=== PATIENT | female | born 1995 | race Caucasian/White ===

== ENCOUNTER 2021-12-04 10:55 | Inpatient (IN) | payer OTHER ==
[2021-12-04 11:27] VITALS: BMI 28.3
[2021-12-04] MEDS ORDERED: hydrALAZINE 20 MG/ML VIAL SLOW IVP PRN ×2 (11:43→15:44)
[2021-12-04 11:54] LABS: Fetal Membranes Rupture No Membranes Rupture (No Rupture)
[2021-12-04] MEDS ORDERED: Diphenoxylate HCl/Atropine Tablet PO PRN (15:44)
[2021-12-04] MEDS ORDERED: Acetaminophen 500 MG TAB PO PRN (15:44)
[2021-12-04] MEDS ORDERED: Ibuprofen 800 MG TAB PO PRN (15:44)
[2021-12-04] MEDS ORDERED: Misoprostol 200 MCG TAB PR PRN (15:44)
[2021-12-04] MEDS ORDERED: Methylergonovine 0.2 MG/ML VIAL IM PRN (15:44)
[2021-12-04] MEDS ORDERED: HYDROcodone/Acetaminophen 5/325 mg Tablet PO PRN ×2 (15:44)
[2021-12-04] MEDS ORDERED: Carboprost 250 MCG/ML AMP IM PRN (15:44)
[2021-12-04] MEDS ORDERED: Ondansetron PF 4 MG/2 ML Vial IVP PRN (15:44)
[2021-12-04] MEDS ORDERED: Promethazine HCl 25 MG/ML VIAL IM PRN (15:44)
[2021-12-04] MEDS ORDERED: Lidocaine 1% (PF) 30 ML VIAL SC PRN (15:44)
[2021-12-04] MEDS ORDERED: NS w/ Oxytocin 30 units 500 ML IV SCH ×2 (15:45)
[2021-12-04] MEDS ORDERED: Misoprostol 100 MCG TAB VAG SCH (15:45)
[2021-12-04 20:12] LABS: Hemoglobin 12.5 g/dL (12.0-15.5); Mean Corpuscular HGB CONC 32.9 g/dL (32.0-36.0); Mean Corpuscular Hemoglobin 27.5 pg (27.0-33.0); Mean Corpuscular Volume 83.5 fl (81.6-98.3); Mean Platelet Volume 11.7 fl (7.4-10.4); Platelet Count 166 10x3/uL (150-450); RBC Distribution Width 18.5 % (11.5-14.5); Red Blood Cell (RBC) Count 4.55 10x6/uL (3.90-5.03); White Blood Cell (WBC) Count 8.7 10x3/uL (3.5-10.5)
[2021-12-04 20:48] LABS: Syphilis Antibody Nonreactive (Nonreactive); Syphilis Antibody Index 0.01 S/CO (<1.00 Non-Reactive)
[2021-12-04] MEDS: valACYclovir 500 MG TAB PO SCH (20:51)
[2021-12-04 21:57] LABS: HBSAg Index 0.18 S/CO (0-0.99); Hep B Surf Ag Non-Reactive S/CO (NonReactive)
[2021-12-05 02:28] LABS: SARS-CoV-2 NAA Rapid Test Not Detected (NotDetected)
[2021-12-05] MEDS: Misoprostol 100 MCG TAB PO SCH ×5 (03:57→14:42)
[2021-12-05] MEDS: Penicillin G Potassium 5 MILL.UNITS in Sodium Chloride 0.9% 100 ML IVPB SCH ×2 (09:00→09:28)
[2021-12-05] MEDS: Lactated Ringer's 1,000 ML IV SCH ×3 (09:00→18:33)
[2021-12-05] MEDS: Penicillin G 2.5 MILL.units 2.5 MILL.UNITS in Premix Bag 1 BAG IVPB SCH ×5 (09:01→17:53)
[2021-12-05] MEDS: valACYclovir 500 MG TAB PO SCH (09:13)
[2021-12-05] MEDS ORDERED: Penicillin G Potassium 5 MILL.UNITS VIAL ONE (09:23)
[2021-12-05] MEDS ORDERED: Tranexamic Acid 1,000 MG/10 ML VIAL ONE (15:14)
[2021-12-05] MEDS ORDERED: CEFAZOLIN 2 GM VIAL ONE (15:14)
[2021-12-05] MEDS ORDERED: Ketamine 50 MG/ML (10ML VIAL) ONE (15:26)
[2021-12-05] MEDS ORDERED: Midazolam HCl 2 mg/2 ml Vial ONE (15:27)
[2021-12-05] MEDS ORDERED: Oxytocin 10 UNITS/ML VIAL ONE (15:45)
[2021-12-05] MEDS ORDERED: Boostrix 0.5 ML (Tdap) VIAL (>/=7 yrs of age) IM ONE (17:58)
[2021-12-05] MEDS ORDERED: Milk Of Magnesia 30 ML UDCUP PO PRN (17:58)
[2021-12-05] MEDS ORDERED: Bisacodyl 10 MG SUPP PR PRN (17:58)
[2021-12-05] MEDS ORDERED: Lanolin Ointment 7 GM TUBE TOP PRN (17:58)
[2021-12-05] MEDS ORDERED: NS w/ Oxytocin 30 units 500 ML IV SCH (17:58)
[2021-12-05] MEDS ORDERED: Benzocaine-Menthol 82.5 ML CAN TOP PRN (17:58)
[2021-12-05] MEDS ORDERED: HYDROcodone/Acetaminophen 5/325 mg Tablet PO PRN ×2 (17:58)
[2021-12-05] MEDS ORDERED: hydrALAZINE 20 MG/ML VIAL SLOW IVP PRN (17:58)
[2021-12-05] MEDS ORDERED: Misoprostol 200 MCG TAB VAG PRN (17:58)
[2021-12-05 17:59] LABS: Hemoglobin 12.2 g/dL (12.0-15.5); Mean Corpuscular HGB CONC 33.2 g/dL (32.0-36.0); Mean Corpuscular Volume 84.6 fl (81.6-98.3); Mean Platelet Volume 11.6 fl (7.4-10.4); Platelet Count 162 10x3/uL (150-450); RBC Distribution Width 17.3 % (11.5-14.5); Red Blood Cell (RBC) Count 4.35 10x6/uL (3.90-5.03); White Blood Cell (WBC) Count 21.5 10x3/uL (3.5-10.5)
[2021-12-05 18:18] LABS: INR-International Normal Ratio 0.9; PTT 27.7 sec (22.0-33.0); Prothrombin Time 9.9 sec (9.5-12.1)
[2021-12-05] MEDS ORDERED: Diphenoxylate HCl/Atropine Tablet PO PRN (18:22)
[2021-12-05] MEDS: Ibuprofen 800 MG TAB PO SCH (18:33)
[2021-12-05 18:50] LABS: D-Dimer Test 11.19 mg/L FEU (0.19-0.50)
[2021-12-06 07:13] LABS: #Basophils 0.1 10x3/uL (0.0-0.2); #Monocytes 0.9 10x3/uL (0.0-1.1); #Neutrophils 10.8 10x3/uL (1.5-8.4); %Basophils 0.5 % (0.0-2.0); %Eosinophils 0.1 % (0.0-6.0); %Monocytes 6.7 % (0.0-10.0); %Neutrophils 84.2 % (40.0-75.0); Hemoglobin 9.2 g/dL (12.0-15.5); Mean Corpuscular HGB CONC 33.9 g/dL (32.0-36.0); Mean Corpuscular Hemoglobin 28.2 pg (27.0-33.0); Mean Corpuscular Volume 83.1 fl (81.6-98.3); Platelet Count 144 10x3/uL (150-450); Red Blood Cell (RBC) Count 3.26 10x6/uL (3.90-5.03); White Blood Cell (WBC) Count 12.9 10x3/uL (3.5-10.5)
[2021-12-06] MEDS: Ferrous Sulfate 325 MG TAB PO SCH ×3 (08:03→21:56)
[2021-12-06] MEDS: CEFAZOLIN 2 GM in Sodium Chloride 0.9% 100 ML IVPB SCH ×4 (08:03→18:46)
[2021-12-06] MEDS: Ibuprofen 800 MG TAB PO SCH ×4 (08:04→21:57)
[2021-12-06] MEDS: Prenatal Vitamin 1 TAB PO SCH (08:54)
[2021-12-06] MEDS: Docusate 100 MG CAP PO SCH ×3 (08:54→21:56)
[2021-12-07] MEDS: Ibuprofen 800 MG TAB PO SCH ×2 (05:22→15:13)
[2021-12-07 07:39] VITALS: BP 114/68; TEMP 98
[2021-12-07] MEDS: Prenatal Vitamin 1 TAB PO SCH (09:07)
[2021-12-07] MEDS: Ferrous Sulfate 325 MG TAB PO SCH (09:07)
[2021-12-07] MEDS: Docusate 100 MG CAP PO SCH (09:07)
== END 2021-12-07 17:10 | disposition home or self-care (01) | DRG 768 ==
LOC: CSHLD/OP 10:55 → CSHLD 15:44 → UNDOADMIN 12-05 02:09 → CSHLD 12-05 02:09 → CSHPP 12-06 10:20
PROVIDERS: ADMIT Obstetrics & Gynecology; ATTEND Obstetrics & Gynecology
PROC: 10E0XZZ Delivery of Products of Conception, External Approach (ICD-10-PCS; principal; 2021-12-05)
PROC: 0W3R7ZZ Control Bleeding in Genitourinary Tract, Via Natural or Artificial Opening (ICD-10-PCS; 2021-12-05)
PROC: 10D17Z9 Manual Extraction of Products of Conception, Retained, Via Natural or Artificial Opening (ICD-10-PCS; 2021-12-05)
DX: O99.02 Anemia complicating childbirth (principal); Z37.0 Single live birth; O98.52 Other viral diseases complicating childbirth; O72.2 Delayed and secondary postpartum hemorrhage; O86.4 Pyrexia of unknown origin following delivery; Z3A.41 41 weeks gestation of pregnancy; Z20.822 Contact with and (suspected) exposure to COVID-19; B00.9 Herpesviral infection, unspecified; D64.9 Anemia, unspecified; O99.824 Streptococcus B carrier state complicating childbirth; O76 Abnormality in fetal heart rate and rhythm complicating labor and delivery
CPT/HCPCS: 36415; 51702; 76819; 84112; 85025; 85027; 85049; 85300; 85362; 85379; 85384; 85610; 85730; 86780; 86850; 86900; 86901; 87340; 87480; 87510; 87660; 88307; 99152; 99153; J0595; J0690; J2210; J2540; J2590; J3490; J7120; U0002